=== PATIENT | male | born 1950 | race Caucasian/White ===

== ENCOUNTER 2021-05-30 11:27 | Inpatient (IN) | payer OTHER ==
[2021-05-30 12:00] LABS: #Eosinphils 0.1 thou/uL (0.0-0.7); #Lymphocytes 2.2 thou/uL (1.20-3.40); #Monocytes 0.9 thou/uL (0.11-0.59); #Neutrophils 11.9 thou/uL (1.40-6.50); %Basophils 0.2 % (0.0-1.0); %Eosinophils 0.4 % (0.0-10.0); %Lymphocytes 14.5 % (21.0-51.0); Hemoglobin 15.9 g/dL (14.0-18.0); Mean Corpuscular HGB CONC 34.6 g/dL (32.0-36.0); Mean Corpuscular Hemoglobin 30.3 pg (27.0-31.0); Mean Corpuscular Volume 87.3 fL (78.0-98.0); Mean Platelet Volume 7.3 fL (7.4-10.4); Platelet Count 303 thou/uL (130-400); RBC Distribution Width 13.6 % (11.5-14.5); Red Blood Cell (RBC) Count 5.25 mill/uL (4.70-6.10)
[2021-05-30 12:11] LABS: PTT 29.4 sec (22.9-36.1); Prothrombin Time 13.7 sec (12.0-14.7)
[2021-05-30 12:18] LABS: ALT (SGPT) 73 U/L (8-55); AST (SGOT) 63 U/L (5-34); Albumin 4.2 g/dL (3.4-4.8); Alkaline Phosphatase 72 U/L (40-110); Anion Gap 18 mmol/L (10-20); BUN (Urea Nitrogen) 30 mg/dL (8.4-25.7); Bilirubin, Total 0.6 mg/dL (0.2-1.2); CK (CPK) 2968 U/L (30-200); Calc. Creatinine Clearance 0 mL/min (70-130); Carbon Dioxide 21 mmol/L (23-31); Chloride 100 mmol/L (98-107); Globulin 3.5 g/dL (2.4-3.5); Glucose 311 mg/dL (80-115); Potassium 4.4 mmol/L (3.5-5.1); Protein, Total 7.7 g/dL (5.8-8.1); Sodium 135 mmol/L (136-145)
[2021-05-30] MEDS ORDERED: Morphine 4 MG/ML VIAL ONE (12:28)
[2021-05-30] MEDS ORDERED: Aspirin 300 MG Suppository ONE (13:45)
[2021-05-30 14:32] LABS: Actual Bicarbonate (HCO3a) 20.7 mEq/L (22-28); Base Excess (BEa) -2.4 mEq/L (-2.0 to +3.0); CO2 Tension 31.4 mmHg (35.0-45.0); Calcium, Ionized (arterial) 1.15 mmol/L (1.12-1.30); Carboxyhemoglobin (COHb) 0.8 gm% (0.0-3.0); O2 Tension (PaO2), arterial 68.9 mmHg (> 70.0); Potassium - ABG Lab 4.18 mmol/L (3.70-5.30); pH, Arterial 7.44 (7.35-7.45)
[2021-05-30 14:33] LABS: Bacteria/HPF None Seen HPF (None Seen); Bilirubin Negative (Negative); Blood, Urine 2+ (Negative); Clarity Clear (Clear); Glucose, Urine (Dipstick) Greater than 1000 mg/dL (Negative); Ketone, Urine Negative (Negative); Leukocyte Negative Leu/uL (Negative); Nitrite Negative (Negative); Protein, Urine (Dipstick) 10 mg/dL (Neg-Trace); RBC/HPF 0-3 HPF (0-3); Squamous Epithelial None Seen HPF (0-3); Urobilinogen Normal mg/dL (Less than 2); WBC/HPF 0-3 HPF (0-3); pH, Urine 5.5 (5.0-9.0)
[2021-05-30 14:34] LABS: Puncture Site RRA
[2021-05-30 14:38] LABS: Specific Gravity, Urine 1.054 (1.002-1.036)
[2021-05-30] MEDS ORDERED: Sodium Chloride 0.9% 1,000 ML IV SCH (16:45)
[2021-05-30] MEDS ORDERED: Ondansetron ODT 4 MG TAB PO PRN (17:19)
[2021-05-30] MEDS ORDERED: Ondansetron PF 4 MG/2 ML Vial IVP PRN (17:19)
[2021-05-30] MEDS ORDERED: Dextrose 50% Abboject 50 ML SYRINGE SLOW IVP PRN (17:19)
[2021-05-30] MEDS ORDERED: Dextrose 5% in Water 1,000 ML IV PRN (17:19)
[2021-05-30] MEDS: Sodium Chloride 0.9% 1,000 ML IV SCH (17:52)
[2021-05-30] MEDS: HumaLOG 300 UNITS/3 ML VIAL SC PRN (18:29)
[2021-05-30] MEDS: Atorvastatin Calcium 40 MG TAB PO SCH (21:58)
[2021-05-30] MEDS: Famotidine/PF 20 mg/2ml Vial SLOW IVP SCH (22:01)
[2021-05-31] MEDS: HumaLOG 300 UNITS/3 ML VIAL SC PRN ×4 (01:05→18:39)
[2021-05-31 05:33] LABS: #Basophils 0.1 thou/uL (0.0-0.2); #Eosinphils 0.1 thou/uL (0.0-0.7); #Lymphocytes 2.2 thou/uL (1.20-3.40); #Monocytes 0.8 thou/uL (0.11-0.59); #Neutrophils 8.6 thou/uL (1.40-6.50); %Eosinophils 0.6 % (0.0-10.0); %Lymphocytes 18.3 % (21.0-51.0); %Neutrophils 73.1 % (42.0-75.0); Hemoglobin 15.3 g/dL (14.0-18.0); Mean Corpuscular HGB CONC 33.5 g/dL (32.0-36.0); Mean Corpuscular Volume 89.4 fL (78.0-98.0); Mean Platelet Volume 7.9 fL (7.4-10.4); Platelet Count 265 thou/uL (130-400); RBC Distribution Width 13.9 % (11.5-14.5); White Blood Cell (WBC) Count 11.8 thou/uL (4.8-10.8)
[2021-05-31 06:00] LABS: ALT (SGPT) 70 U/L (8-55); AST (SGOT) 64 U/L (5-34); Alkaline Phosphatase 64 U/L (40-110); Anion Gap 19 mmol/L (10-20); BUN (Urea Nitrogen) 30 mg/dL (8.4-25.7); Bilirubin, Total 0.5 mg/dL (0.2-1.2); CK (CPK) 2115 U/L (30-200); Calc. Creatinine Clearance 84 mL/min (70-130); Calcium 9.6 mg/dL (7.8-10.44); Carbon Dioxide 18 mmol/L (23-31); Cardiac Risk 5.4 (Less than 4.5); Chloride 104 mmol/L (98-107); Cholesterol 205 mg/dl (< 200 Desired); Globulin 3.4 g/dL (2.4-3.5); Glucose 329 mg/dL (83-110); HDL Cholesterol 38 mg/dL (>60 Neg Risk); LDL Cholesterol, Calculated 135 mg/dL; Potassium 4.4 mmol/L (3.5-5.1); Protein, Total 7.4 g/dL (5.8-8.1); Sodium 137 mmol/L (136-145); Triglycerides 162 mg/dL (Less than 150)
[2021-05-31] MEDS: Sodium Chloride 0.9% 1,000 ML IV SCH ×2 (06:09→20:37)
[2021-05-31] MEDS: Aspirin 300 MG Suppository PR SCH (09:32)
[2021-05-31] MEDS: Famotidine/PF 20 mg/2ml Vial SLOW IVP SCH ×2 (09:32→20:37)
[2021-05-31] MEDS ORDERED: Lantus 1000 UNITS/10 ML VIAL SC SCH (15:45)
[2021-05-31] MEDS: Acetaminophen 650 MG Suppository PR PRN (20:37)
[2021-05-31] MEDS: Atorvastatin Calcium 40 MG TAB PO SCH (21:16)
[2021-06-01] MEDS: HumaLOG 300 UNITS/3 ML VIAL SC PRN ×4 (00:36→19:33)
[2021-06-01] MEDS ORDERED: Lantus 1000 UNITS/10 ML VIAL SC SCH (09:00)
[2021-06-01] MEDS: Sodium Chloride 0.9% 1,000 ML IV SCH ×2 (10:03→23:58)
[2021-06-01] MEDS: Nicotine 21 MG PATCH TD SCH ×2 (10:05→10:13)
[2021-06-01] MEDS: Aspirin 300 MG Suppository PR SCH (10:05)
[2021-06-01] MEDS: Famotidine/PF 20 mg/2ml Vial SLOW IVP SCH (10:05)
[2021-06-01] MEDS: Lantus 1000 UNITS/10 ML VIAL SC SCH (10:08)
[2021-06-01 11:47] LABS: #Eosinphils 0.1 thou/uL (0.0-0.7); #Monocytes 0.7 thou/uL (0.11-0.59); #Neutrophils 6.1 thou/uL (1.40-6.50); %Basophils 0.5 % (0.0-1.0); %Eosinophils 1.1 % (0.0-10.0); %Lymphocytes 22.3 % (21.0-51.0); %Monocytes 7.5 % (0.0-10.0); %Neutrophils 68.5 % (42.0-75.0); Hemoglobin 14.1 g/dL (14.0-18.0); Mean Corpuscular HGB CONC 33.1 g/dL (32.0-36.0); Mean Corpuscular Hemoglobin 29.6 pg (27.0-31.0); Mean Corpuscular Volume 89.4 fL (78.0-98.0); Mean Platelet Volume 7.5 fL (7.4-10.4); Platelet Count 248 thou/uL (130-400); RBC Distribution Width 13.7 % (11.5-14.5); Red Blood Cell (RBC) Count 4.78 mill/uL (4.70-6.10); White Blood Cell (WBC) Count 8.9 thou/uL (4.8-10.8)
[2021-06-01 12:14] LABS: ALT (SGPT) 67 U/L (8-55); AST (SGOT) 71 U/L (5-34); Albumin 3.9 g/dL (3.4-4.8); Alkaline Phosphatase 59 U/L (40-110); Anion Gap 15 mmol/L (10-20); BUN (Urea Nitrogen) 24 mg/dL (8.4-25.7); Bilirubin, Total 0.5 mg/dL (0.2-1.2); CK (CPK) 1946 U/L (30-200); Calc. Creatinine Clearance 95 mL/min (70-130); Calcium 9.5 mg/dL (7.8-10.44); Carbon Dioxide 22 mmol/L (23-31); Chloride 109 mmol/L (98-107); Globulin 3.7 g/dL (2.4-3.5); Glucose 302 mg/dL (83-110); Potassium 4.4 mmol/L (3.5-5.1); Protein, Total 7.6 g/dL (5.8-8.1); Sodium 142 mmol/L (136-145)
[2021-06-01] MEDS: Atorvastatin Calcium 40 MG TAB PO SCH (21:25)
[2021-06-02] MEDS: Famotidine/PF 20 mg/2ml Vial SLOW IVP SCH ×5 (00:08→22:03)
[2021-06-02] MEDS: HumaLOG 300 UNITS/3 ML VIAL SC PRN ×4 (00:17→17:29)
[2021-06-02 06:05] LABS: #Eosinphils 0.1 thou/uL (0.0-0.7); #Lymphocytes 1.8 thou/uL (1.20-3.40); #Monocytes 0.5 thou/uL (0.11-0.59); %Basophils 0.4 % (0.0-1.0); %Eosinophils 1.3 % (0.0-10.0); %Lymphocytes 21.3 % (21.0-51.0); %Monocytes 6.4 % (0.0-10.0); %Neutrophils 70.6 % (42.0-75.0); Hemoglobin 13.9 g/dL (14.0-18.0); Mean Corpuscular HGB CONC 33.2 g/dL (32.0-36.0); Mean Corpuscular Hemoglobin 30.2 pg (27.0-31.0); Mean Corpuscular Volume 90.9 fL (78.0-98.0); Mean Platelet Volume 7.3 fL (7.4-10.4); Platelet Count 232 thou/uL (130-400); RBC Distribution Width 13.9 % (11.5-14.5); White Blood Cell (WBC) Count 8.5 thou/uL (4.8-10.8)
[2021-06-02 06:25] LABS: ALT (SGPT) 67 U/L (8-55); AST (SGOT) 58 U/L (5-34); Albumin 3.7 g/dL (3.4-4.8); Alkaline Phosphatase 57 U/L (40-110); Anion Gap 14 mmol/L (10-20); BUN (Urea Nitrogen) 22 mg/dL (8.4-25.7); Bilirubin, Total 0.5 mg/dL (0.2-1.2); CK (CPK) 1529 U/L (30-200); Calc. Creatinine Clearance 108 mL/min (70-130); Calcium 9.3 mg/dL (7.8-10.44); Carbon Dioxide 20 mmol/L (23-31); Chloride 113 mmol/L (98-107); Globulin 3.3 g/dL (2.4-3.5); Glucose 292 mg/dL (83-110); Sodium 143 mmol/L (136-145)
[2021-06-02] MEDS: Lantus 1000 UNITS/10 ML VIAL SC SCH (09:20)
[2021-06-02] MEDS: Aspirin 300 MG Suppository PR SCH (09:20)
[2021-06-02] MEDS: Nicotine 21 MG PATCH TD SCH (09:20)
[2021-06-02] MEDS: Sodium Chloride 0.9% 1,000 ML IV SCH (13:15)
[2021-06-02] MEDS ORDERED: Lantus 1000 UNITS/10 ML VIAL SC SCH (18:30)
[2021-06-02] MEDS: Atorvastatin Calcium 40 MG TAB PO SCH (22:21)
[2021-06-03] MEDS: HumaLOG 300 UNITS/3 ML VIAL SC PRN ×5 (00:30→23:35)
[2021-06-03] MEDS: Sodium Chloride 0.9% 1,000 ML IV SCH (05:40)
[2021-06-03 06:05] LABS: #Eosinphils 0.2 thou/uL (0.0-0.7); #Lymphocytes 1.9 thou/uL (1.20-3.40); #Monocytes 0.7 thou/uL (0.11-0.59); #Neutrophils 6.7 thou/uL (1.40-6.50); %Basophils 0.4 % (0.0-1.0); %Eosinophils 2.5 % (0.0-10.0); %Lymphocytes 20.3 % (21.0-51.0); %Monocytes 6.9 % (0.0-10.0); Hemoglobin 14.4 g/dL (14.0-18.0); Mean Corpuscular HGB CONC 32.6 g/dL (32.0-36.0); Mean Corpuscular Hemoglobin 29.4 pg (27.0-31.0); Mean Corpuscular Volume 90.2 fL (78.0-98.0); Mean Platelet Volume 7.2 fL (7.4-10.4); Platelet Count 239 thou/uL (130-400); RBC Distribution Width 13.8 % (11.5-14.5); White Blood Cell (WBC) Count 9.5 thou/uL (4.8-10.8)
[2021-06-03 06:08] LABS: ALT (SGPT) 72 U/L (8-55); AST (SGOT) 62 U/L (5-34); Albumin 3.8 g/dL (3.4-4.8); Alkaline Phosphatase 59 U/L (40-110); Anion Gap 14 mmol/L (10-20); BUN (Urea Nitrogen) 20 mg/dL (8.4-25.7); Bilirubin, Total 0.6 mg/dL (0.2-1.2); Calc. Creatinine Clearance 100 mL/min (70-130); Calcium 9.5 mg/dL (7.8-10.44); Carbon Dioxide 22 mmol/L (23-31); Chloride 113 mmol/L (98-107); Globulin 3.4 g/dL (2.4-3.5); Glucose 271 mg/dL (83-110); Potassium 3.9 mmol/L (3.5-5.1); Protein, Total 7.2 g/dL (5.8-8.1); Sodium 145 mmol/L (136-145)
[2021-06-03] MEDS: Famotidine/PF 20 mg/2ml Vial SLOW IVP SCH ×2 (08:32→21:45)
[2021-06-03] MEDS: Aspirin 300 MG Suppository PR SCH (08:32)
[2021-06-03] MEDS: Lantus 1000 UNITS/10 ML VIAL SC SCH (08:33)
[2021-06-03] MEDS: Nicotine 21 MG PATCH TD SCH (08:33)
[2021-06-03] MEDS: D5W-AA 4.25% with LYTES 1,000 ML IV SCH ×2 (11:23→23:35)
[2021-06-03] MEDS: Atorvastatin Calcium 40 MG TAB PO SCH (21:21)
[2021-06-04] MEDS ORDERED: Lorazepam 2 MG/ML VIAL SLOW IVP SCH (04:00)
[2021-06-04] MEDS: HumaLOG 300 UNITS/3 ML VIAL SC PRN ×2 (06:22→18:37)
[2021-06-04] MEDS: Nicotine 21 MG PATCH TD SCH (08:29)
[2021-06-04] MEDS: Lantus 1000 UNITS/10 ML VIAL SC SCH (08:29)
[2021-06-04] MEDS: Famotidine/PF 20 mg/2ml Vial SLOW IVP SCH ×2 (08:29→21:17)
[2021-06-04] MEDS ORDERED: Aspirin Chewable 81 MG TAB PO SCH (09:00)
[2021-06-04] MEDS ORDERED: hydrALAZINE 20 MG/ML VIAL SLOW IVP PRN (10:42)
[2021-06-04 11:07] LABS: Actual Bicarbonate (HCO3a) 19.3 mEq/L (22-28); Base Excess (BEa) -4.5 mEq/L (-2.0 to +3.0); CO2 Tension 32.2 mmHg (35.0-45.0); Calcium, Ionized (arterial) 1.22 mmol/L (1.12-1.30); Carboxyhemoglobin (COHb) 0.5 gm% (0.0-3.0); Hemoglobin (Hb) 15.3 g/dL (14.0-18.0); O2 Tension (PaO2), arterial 84.9 mmHg (> 70.0)
[2021-06-04 11:09] LABS: Puncture Site RRA
[2021-06-04] MEDS: Acetaminophen 650 MG Suppository PR PRN ×2 (12:03→21:17)
[2021-06-04 12:12] LABS: Lactic Acid 1.1 mmol/L (0.5-2.2)
[2021-06-04] MEDS ORDERED: Meropenem 1 GM in Sodium Chloride 0.9% 100 ML IVPB SCH ×2 (12:30→14:00)
[2021-06-04 13:11] LABS: SARS-CoV-2 NAA Rapid Test Not Detected (NotDetected)
[2021-06-04] MEDS ORDERED: Amino Acids 4.25 %/Dextrose 5% 2,000 ML BAG IV SCH (13:15)
[2021-06-04 14:03] LABS: #Eosinphils 0.3 thou/uL (0.0-0.7); #Lymphocytes 2.3 thou/uL (1.20-3.40); #Monocytes 0.7 thou/uL (0.11-0.59); #Neutrophils 8.5 thou/uL (1.40-6.50); %Basophils 0.1 % (0.0-1.0); %Eosinophils 2.8 % (0.0-10.0); %Lymphocytes 19.3 % (21.0-51.0); %Neutrophils 71.9 % (42.0-75.0); Hemoglobin 15.3 g/dL (14.0-18.0); Mean Corpuscular Hemoglobin 30.9 pg (27.0-31.0); Mean Corpuscular Volume 91.1 fL (78.0-98.0); Mean Platelet Volume 7.4 fL (7.4-10.4); Platelet Count 258 thou/uL (130-400); RBC Distribution Width 13.9 % (11.5-14.5); Red Blood Cell (RBC) Count 4.96 mill/uL (4.70-6.10); White Blood Cell (WBC) Count 11.9 thou/uL (4.8-10.8)
[2021-06-04 14:16] LABS: Anion Gap 16 mmol/L (10-20); BUN (Urea Nitrogen) 24 mg/dL (8.4-25.7); Calc. Creatinine Clearance 100 mL/min (70-130); Calcium 9.3 mg/dL (7.8-10.44); Carbon Dioxide 20 mmol/L (23-31); Chloride 112 mmol/L (98-107); Glucose 309 mg/dL (83-110); Potassium 4.5 mmol/L (3.5-5.1); Sodium 143 mmol/L (136-145)
[2021-06-04] MEDS: DEXTROSE 5% IV SCH (15:41)
[2021-06-04] MEDS: AMINO ACIDS IV SCH (15:41)
[2021-06-04] MEDS: ADMIXTURE FEE IV SCH (15:41)
[2021-06-04] MEDS: Meropenem 1 GM in Sodium Chloride 0.9% 100 ML IVPB SCH (21:17)
[2021-06-04] MEDS: Atorvastatin Calcium 40 MG TAB PO SCH (21:45)
[2021-06-05] MEDS: HumaLOG 300 UNITS/3 ML VIAL SC PRN ×4 (00:24→18:04)
[2021-06-05] MEDS: Meropenem 1 GM in Sodium Chloride 0.9% 100 ML IVPB SCH ×3 (05:14→21:35)
[2021-06-05] MEDS: AMINO ACIDS IV SCH ×2 (05:15→19:39)
[2021-06-05] MEDS: DEXTROSE 5% IV SCH ×2 (05:15→19:39)
[2021-06-05] MEDS: ADMIXTURE FEE IV SCH ×2 (05:15→19:39)
[2021-06-05] MEDS ORDERED: Lantus 1000 UNITS/10 ML VIAL SC SCH (09:00)
[2021-06-05] MEDS: Aspirin 300 MG Suppository PR SCH (09:46)
[2021-06-05] MEDS: Famotidine/PF 20 mg/2ml Vial SLOW IVP SCH ×2 (09:52→19:40)
[2021-06-05] MEDS: Nicotine 21 MG PATCH TD SCH (09:52)
[2021-06-05] MEDS ORDERED: Enoxaparin Sodium 120 MG/0.8 ML SYRINGE SC SCH (12:41)
[2021-06-05 13:19] LABS: #Eosinphils 0.3 thou/uL (0.0-0.7); #Lymphocytes 2.3 thou/uL (1.20-3.40); #Monocytes 0.7 thou/uL (0.11-0.59); #Neutrophils 6.7 thou/uL (1.40-6.50); %Basophils 0.5 % (0.0-1.0); %Eosinophils 3.3 % (0.0-10.0); %Lymphocytes 22.8 % (21.0-51.0); %Monocytes 7.1 % (0.0-10.0); %Neutrophils 66.4 % (42.0-75.0); Hemoglobin 15.2 g/dL (14.0-18.0); Mean Corpuscular HGB CONC 32.9 g/dL (32.0-36.0); Mean Corpuscular Hemoglobin 29.7 pg (27.0-31.0); Mean Corpuscular Volume 90.4 fL (78.0-98.0); Mean Platelet Volume 7.7 fL (7.4-10.4); Platelet Count 249 thou/uL (130-400); RBC Distribution Width 13.9 % (11.5-14.5); Red Blood Cell (RBC) Count 5.12 mill/uL (4.70-6.10); White Blood Cell (WBC) Count 10.1 thou/uL (4.8-10.8)
[2021-06-05] MEDS: Enoxaparin Sodium 80 MG/0.8 ML SYRINGE SC SCH (19:40)
[2021-06-05] MEDS: Atorvastatin Calcium 40 MG TAB PO SCH (19:40)
[2021-06-06] MEDS: HumaLOG 300 UNITS/3 ML VIAL SC PRN ×3 (01:20→17:40)
[2021-06-06] MEDS: Acetaminophen 650 MG Suppository PR PRN (03:35)
[2021-06-06] MEDS ORDERED: methylPREDNISolone Sod Succ 40 MG VIAL ONE (03:54)
[2021-06-06] MEDS ORDERED: Ketorolac Tromethamine 30 MG/ML VIAL IVP SCH (04:45)
[2021-06-06] MEDS: Meropenem 1 GM in Sodium Chloride 0.9% 100 ML IVPB SCH ×3 (05:00→20:12)
[2021-06-06 07:22] LABS: #Eosinphils 0.2 thou/uL (0.0-0.7); #Lymphocytes 1.1 thou/uL (1.20-3.40); #Monocytes 0.3 thou/uL (0.11-0.59); #Neutrophils 8.4 thou/uL (1.40-6.50); %Basophils 0.1 % (0.0-1.0); %Eosinophils 1.7 % (0.0-10.0); %Lymphocytes 11.1 % (21.0-51.0); %Monocytes 3.1 % (0.0-10.0); Hemoglobin 15.3 g/dL (14.0-18.0); Mean Corpuscular HGB CONC 32.1 g/dL (32.0-36.0); Mean Corpuscular Volume 90.4 fL (78.0-98.0); Mean Platelet Volume 7.6 fL (7.4-10.4); Platelet Count 236 thou/uL (130-400); RBC Distribution Width 13.8 % (11.5-14.5); Red Blood Cell (RBC) Count 5.26 mill/uL (4.70-6.10); White Blood Cell (WBC) Count 9.9 thou/uL (4.8-10.8)
[2021-06-06 07:35] LABS: Anion Gap 15 mmol/L (10-20); BUN (Urea Nitrogen) 36 mg/dL (8.4-25.7); Calc. Creatinine Clearance 95 mL/min (70-130); Calcium 9.6 mg/dL (7.8-10.44); Carbon Dioxide 18 mmol/L (23-31); Chloride 112 mmol/L (98-107); Glucose 414 mg/dL (83-110); Potassium 4.7 mmol/L (3.5-5.1); Sodium 140 mmol/L (136-145)
[2021-06-06] MEDS ORDERED: Vancomycin 1.5 GRAM/300 ML BAG 1.5 GM in Premix Bag 1 BAG IVPB SCH (08:00)
[2021-06-06] MEDS ORDERED: [UNRECOGNIZED DRUG - OTHER] IVPB PRN (08:05)
[2021-06-06] MEDS: Enoxaparin Sodium 80 MG/0.8 ML SYRINGE SC SCH ×2 (09:52→20:12)
[2021-06-06] MEDS: Aspirin 300 MG Suppository PR SCH (09:52)
[2021-06-06] MEDS: Famotidine/PF 20 mg/2ml Vial SLOW IVP SCH ×2 (09:53→20:12)
[2021-06-06] MEDS: Nicotine 21 MG PATCH TD SCH (09:53)
[2021-06-06] MEDS: Lantus 1000 UNITS/10 ML VIAL SC SCH (09:53)
[2021-06-06] MEDS: AMINO ACIDS IV SCH (09:54)
[2021-06-06] MEDS: ADMIXTURE FEE IV SCH (09:54)
[2021-06-06] MEDS: DEXTROSE 5% IV SCH (09:54)
[2021-06-06] MEDS ORDERED: Vancomycin HCl 1.5 GM in Sodium Chloride 0.9% 250 ML 300 ML IVPB SCH (20:00)
[2021-06-07] MEDS ORDERED: methylPREDNISolone Sod Succ 40 MG VIAL IVP SCH (04:00)
[2021-06-07 04:18] LABS: #Eosinphils 0.2 thou/uL (0.0-0.7); #Lymphocytes 1.7 thou/uL (1.20-3.40); #Monocytes 0.7 thou/uL (0.11-0.59); #Neutrophils 6.5 thou/uL (1.40-6.50); %Basophils 0.2 % (0.0-1.0); %Eosinophils 1.9 % (0.0-10.0); %Monocytes 7.5 % (0.0-10.0); %Neutrophils 71.5 % (42.0-75.0); Hemoglobin 15.4 g/dL (14.0-18.0); Mean Corpuscular HGB CONC 31.5 g/dL (32.0-36.0); Mean Corpuscular Hemoglobin 28.9 pg (27.0-31.0); Mean Corpuscular Volume 91.7 fL (78.0-98.0); Mean Platelet Volume 7.9 fL (7.4-10.4); Platelet Count 262 thou/uL (130-400); RBC Distribution Width 13.8 % (11.5-14.5); Red Blood Cell (RBC) Count 5.34 mill/uL (4.70-6.10); White Blood Cell (WBC) Count 9.1 thou/uL (4.8-10.8)
[2021-06-07 04:28] LABS: Anion Gap 14 mmol/L (10-20); BUN (Urea Nitrogen) 38 mg/dL (8.4-25.7); Calc. Creatinine Clearance 100 mL/min (70-130); Calcium 9.7 mg/dL (7.8-10.44); Carbon Dioxide 21 mmol/L (23-31); Chloride 111 mmol/L (98-107); Glucose 339 mg/dL (83-110); Potassium 4.1 mmol/L (3.5-5.1); Sodium 142 mmol/L (136-145)
[2021-06-07] MEDS: Meropenem 1 GM in Sodium Chloride 0.9% 100 ML IVPB SCH ×3 (05:34→21:45)
[2021-06-07] MEDS: HumaLOG 300 UNITS/3 ML VIAL SC PRN ×2 (05:35→16:35)
[2021-06-07 07:14] LABS: Vancomycin, Trough 13.5 ug/mL
[2021-06-07] MEDS: Famotidine/PF 20 mg/2ml Vial SLOW IVP SCH ×2 (07:58→21:46)
[2021-06-07] MEDS: Nicotine 21 MG PATCH TD SCH (07:58)
[2021-06-07] MEDS: Aspirin 300 MG Suppository PR SCH (07:59)
[2021-06-07] MEDS: Enoxaparin Sodium 80 MG/0.8 ML SYRINGE SC SCH ×2 (07:59→21:46)
[2021-06-07] MEDS ORDERED: VANCOMYCIN 1.75 GM/350 ML BAG 1.75 GM in Premix Bag 1 BAG IVPB SCH (08:00)
[2021-06-07] MEDS: Lantus 1000 UNITS/10 ML VIAL SC SCH (16:36)
[2021-06-07] MEDS ORDERED: Lantus 1000 UNITS/10 ML VIAL SC SCH (21:00)
[2021-06-07] MEDS: levETIRAcetam in NS 500 MG in Premix Bag 1 BAG IVPB SCH (21:00)
[2021-06-08] MEDS: HumaLOG 300 UNITS/3 ML VIAL SC PRN ×4 (00:30→17:55)
[2021-06-08 04:13] LABS: #Eosinphils 0.4 thou/uL (0.0-0.7); #Lymphocytes 1.9 thou/uL (1.20-3.40); #Monocytes 0.7 thou/uL (0.11-0.59); #Neutrophils 4.9 thou/uL (1.40-6.50); %Basophils 0.1 % (0.0-1.0); %Eosinophils 5.4 % (0.0-10.0); %Lymphocytes 23.8 % (21.0-51.0); %Monocytes 8.5 % (0.0-10.0); %Neutrophils 62.1 % (42.0-75.0); Hemoglobin 15.4 g/dL (14.0-18.0); Mean Corpuscular HGB CONC 33.6 g/dL (32.0-36.0); Mean Corpuscular Hemoglobin 30.1 pg (27.0-31.0); Mean Corpuscular Volume 89.7 fL (78.0-98.0); Mean Platelet Volume 8.1 fL (7.4-10.4); Platelet Count 244 thou/uL (130-400); RBC Distribution Width 13.7 % (11.5-14.5); White Blood Cell (WBC) Count 7.9 thou/uL (4.8-10.8)
[2021-06-08 04:31] LABS: Anion Gap 12 mmol/L (10-20); BUN (Urea Nitrogen) 39 mg/dL (8.4-25.7); Calc. Creatinine Clearance 95 mL/min (70-130); Calcium 9.5 mg/dL (7.8-10.44); Carbon Dioxide 19 mmol/L (23-31); Chloride 116 mmol/L (98-107); Glucose 390 mg/dL (83-110); Sodium 143 mmol/L (136-145)
[2021-06-08] MEDS: Meropenem 1 GM in Sodium Chloride 0.9% 100 ML IVPB SCH ×3 (05:13→20:13)
[2021-06-08] MEDS: DEXTROSE 5% IV SCH ×2 (06:15→20:10)
[2021-06-08] MEDS: ADMIXTURE FEE IV SCH ×2 (06:15→20:10)
[2021-06-08] MEDS: AMINO ACIDS IV SCH ×2 (06:15→20:10)
[2021-06-08] MEDS: Famotidine/PF 20 mg/2ml Vial SLOW IVP SCH ×2 (09:18→20:12)
[2021-06-08] MEDS: Aspirin 300 MG Suppository PR SCH (09:18)
[2021-06-08] MEDS: Nicotine 21 MG PATCH TD SCH (09:18)
[2021-06-08] MEDS: Enoxaparin Sodium 80 MG/0.8 ML SYRINGE SC SCH ×2 (09:18→20:11)
[2021-06-08] MEDS: levETIRAcetam in NS 500 MG in Premix Bag 1 BAG IVPB SCH ×2 (09:18→20:13)
[2021-06-08] MEDS: Lantus 1000 UNITS/10 ML VIAL SC SCH ×2 (10:23→20:10)
[2021-06-09 03:31] LABS: #Basophils 0.1 thou/uL (0.0-0.2); #Eosinphils 0.3 thou/uL (0.0-0.7); #Lymphocytes 2.1 thou/uL (1.20-3.40); #Monocytes 0.8 thou/uL (0.11-0.59); #Neutrophils 9.1 thou/uL (1.40-6.50); %Basophils 0.6 % (0.0-1.0); %Eosinophils 2.2 % (0.0-10.0); %Lymphocytes 17.2 % (21.0-51.0); %Monocytes 6.6 % (0.0-10.0); %Neutrophils 73.4 % (42.0-75.0); Hemoglobin 15.7 g/dL (14.0-18.0); Mean Corpuscular HGB CONC 32.8 g/dL (32.0-36.0); Mean Corpuscular Hemoglobin 29.8 pg (27.0-31.0); Mean Corpuscular Volume 90.8 fL (78.0-98.0); Mean Platelet Volume 8.1 fL (7.4-10.4); Platelet Count 259 thou/uL (130-400); RBC Distribution Width 13.9 % (11.5-14.5); Red Blood Cell (RBC) Count 5.26 mill/uL (4.70-6.10); White Blood Cell (WBC) Count 12.3 thou/uL (4.8-10.8)
[2021-06-09 03:50] LABS: Anion Gap 15 mmol/L (10-20); BUN (Urea Nitrogen) 36 mg/dL (8.4-25.7); Calc. Creatinine Clearance 100 mL/min (70-130); Calcium 9.6 mg/dL (7.8-10.44); Carbon Dioxide 19 mmol/L (23-31); Chloride 115 mmol/L (98-107); Glucose 307 mg/dL (83-110); Sodium 145 mmol/L (136-145)
[2021-06-09] MEDS: Meropenem 1 GM in Sodium Chloride 0.9% 100 ML IVPB SCH ×3 (06:20→21:29)
[2021-06-09] MEDS: HumaLOG 300 UNITS/3 ML VIAL SC PRN ×3 (06:37→17:53)
[2021-06-09] MEDS: Aspirin 300 MG Suppository PR SCH (09:35)
[2021-06-09] MEDS: Lantus 1000 UNITS/10 ML VIAL SC SCH ×2 (11:45→20:48)
[2021-06-09] MEDS: Enoxaparin Sodium 80 MG/0.8 ML SYRINGE SC SCH ×2 (11:45→20:41)
[2021-06-09] MEDS: levETIRAcetam in NS 500 MG in Premix Bag 1 BAG IVPB SCH ×2 (11:46→20:48)
[2021-06-09] MEDS: Famotidine/PF 20 mg/2ml Vial SLOW IVP SCH ×2 (11:46→20:44)
[2021-06-09] MEDS: Nicotine 21 MG PATCH TD SCH (11:46)
[2021-06-10] MEDS: HumaLOG 300 UNITS/3 ML VIAL SC PRN ×4 (00:39→18:36)
[2021-06-10] MEDS: Meropenem 1 GM in Sodium Chloride 0.9% 100 ML IVPB SCH ×3 (04:06→21:36)
[2021-06-10] MEDS: AMINO ACIDS IV SCH (04:13)
[2021-06-10] MEDS: ADMIXTURE FEE IV SCH (04:13)
[2021-06-10] MEDS: DEXTROSE 5% IV SCH (04:13)
[2021-06-10] MEDS: Lantus 1000 UNITS/10 ML VIAL SC SCH ×2 (08:15→21:38)
[2021-06-10] MEDS: Enoxaparin Sodium 80 MG/0.8 ML SYRINGE SC SCH ×2 (08:18→21:36)
[2021-06-10] MEDS: Nicotine 21 MG PATCH TD SCH (08:19)
[2021-06-10] MEDS: Famotidine/PF 20 mg/2ml Vial SLOW IVP SCH ×2 (08:19→21:36)
[2021-06-10] MEDS: Aspirin 300 MG Suppository PR SCH (08:19)
[2021-06-10] MEDS: levETIRAcetam in NS 500 MG in Premix Bag 1 BAG IVPB SCH ×2 (08:20→21:35)
[2021-06-10] MEDS: hydrALAZINE 20 MG/ML VIAL SLOW IVP PRN ×2 (08:20→15:02)
[2021-06-10] MEDS: Amino Acids 4.25 %/Dextrose 5% 1,000 ML IV SCH (17:11)
[2021-06-11] MEDS: HumaLOG 300 UNITS/3 ML VIAL SC PRN ×3 (00:45→18:25)
[2021-06-11] MEDS: Amino Acids 4.25 %/Dextrose 5% 1,000 ML IV SCH ×3 (06:18→22:44)
[2021-06-11] MEDS: Meropenem 1 GM in Sodium Chloride 0.9% 100 ML IVPB SCH ×3 (06:19→21:43)
[2021-06-11] MEDS ORDERED: Lantus 1000 UNITS/10 ML VIAL SC SCH (07:35)
[2021-06-11 07:41] LABS: #Basophils 0.1 thou/uL (0.0-0.2); #Eosinphils 0.3 thou/uL (0.0-0.7); #Lymphocytes 2.4 thou/uL (1.20-3.40); #Monocytes 0.6 thou/uL (0.11-0.59); #Neutrophils 5.2 thou/uL (1.40-6.50); %Basophils 0.7 % (0.0-1.0); %Lymphocytes 28.2 % (21.0-51.0); %Monocytes 6.4 % (0.0-10.0); %Neutrophils 60.8 % (42.0-75.0); Hemoglobin 15.4 g/dL (14.0-18.0); Mean Corpuscular HGB CONC 32.6 g/dL (32.0-36.0); Mean Corpuscular Hemoglobin 29.6 pg (27.0-31.0); Mean Corpuscular Volume 90.8 fL (78.0-98.0); Mean Platelet Volume 8.9 fL (7.4-10.4); Platelet Count 242 thou/uL (130-400); RBC Distribution Width 13.9 % (11.5-14.5); Red Blood Cell (RBC) Count 5.22 mill/uL (4.70-6.10); White Blood Cell (WBC) Count 8.6 thou/uL (4.8-10.8)
[2021-06-11] MEDS: Famotidine/PF 20 mg/2ml Vial SLOW IVP SCH ×2 (09:14→21:50)
[2021-06-11] MEDS: Enoxaparin Sodium 80 MG/0.8 ML SYRINGE SC SCH ×2 (09:14→21:43)
[2021-06-11] MEDS: Lantus 1000 UNITS/10 ML VIAL SC SCH ×2 (09:15→21:44)
[2021-06-11] MEDS: levETIRAcetam in NS 500 MG in Premix Bag 1 BAG IVPB SCH ×2 (09:15→21:42)
[2021-06-11] MEDS: Nicotine 21 MG PATCH TD SCH (09:16)
[2021-06-11] MEDS ORDERED: Enoxaparin Sodium 80 MG/0.8 ML SYRINGE SC SCH (10:00)
[2021-06-11] MEDS: Aspirin 300 MG Suppository PR SCH (10:00)
[2021-06-11] MEDS: Acetaminophen 650 MG Suppository PR PRN (17:22)
[2021-06-12 00:29] LABS: SARS-CoV-2 PCR by NAA Not Detected (NotDetected)
[2021-06-12] MEDS: Meropenem 1 GM in Sodium Chloride 0.9% 100 ML IVPB SCH (05:27)
[2021-06-12] MEDS: HumaLOG 300 UNITS/3 ML VIAL SC PRN ×3 (06:23→19:28)
[2021-06-12] MEDS: Lantus 1000 UNITS/10 ML VIAL SC SCH ×2 (08:41→22:51)
[2021-06-12] MEDS: levETIRAcetam in NS 500 MG in Premix Bag 1 BAG IVPB SCH ×2 (08:41→22:51)
[2021-06-12] MEDS: Aspirin 300 MG Suppository PR SCH (08:42)
[2021-06-12] MEDS: Enoxaparin Sodium 80 MG/0.8 ML SYRINGE SC SCH ×2 (08:42→22:49)
[2021-06-12] MEDS: Nicotine 21 MG PATCH TD SCH (08:42)
[2021-06-12] MEDS: Famotidine/PF 20 mg/2ml Vial SLOW IVP SCH ×2 (08:42→22:49)
[2021-06-12] MEDS: Amino Acids 4.25 %/Dextrose 5% 1,000 ML IV SCH (11:41)
[2021-06-13] MEDS: Amino Acids 4.25 %/Dextrose 5% 1,000 ML IV SCH ×2 (00:51→15:06)
[2021-06-13] MEDS: Aspirin 300 MG Suppository PR SCH (08:12)
[2021-06-13] MEDS: Nicotine 21 MG PATCH TD SCH (08:44)
[2021-06-13] MEDS: levETIRAcetam in NS 500 MG in Premix Bag 1 BAG IVPB SCH ×2 (08:44→21:05)
[2021-06-13] MEDS: Famotidine/PF 20 mg/2ml Vial SLOW IVP SCH ×2 (08:44→21:05)
[2021-06-13] MEDS: Enoxaparin Sodium 80 MG/0.8 ML SYRINGE SC SCH ×2 (08:44→21:05)
[2021-06-13] MEDS: Lantus 1000 UNITS/10 ML VIAL SC SCH ×2 (08:45→21:07)
[2021-06-13 10:04] LABS: #Basophils 0.1 thou/uL (0.0-0.2); #Eosinphils 0.5 thou/uL (0.0-0.7); #Lymphocytes 2.3 thou/uL (1.20-3.40); #Monocytes 0.6 thou/uL (0.11-0.59); #Neutrophils 4.9 thou/uL (1.40-6.50); %Eosinophils 6.2 % (0.0-10.0); %Lymphocytes 27.7 % (21.0-51.0); %Monocytes 7.2 % (0.0-10.0); %Neutrophils 57.9 % (42.0-75.0); Hemoglobin 15.2 g/dL (14.0-18.0); Mean Corpuscular Volume 90.7 fL (78.0-98.0); Mean Platelet Volume 8.4 fL (7.4-10.4); Platelet Count 272 thou/uL (130-400); RBC Distribution Width 14.1 % (11.5-14.5); Red Blood Cell (RBC) Count 5.26 mill/uL (4.70-6.10); White Blood Cell (WBC) Count 8.4 thou/uL (4.8-10.8)
[2021-06-13 10:53] LABS: Anion Gap 16 mmol/L (10-20); BUN (Urea Nitrogen) 27 mg/dL (8.4-25.7); Calc. Creatinine Clearance 136 mL/min (70-130); Calcium 9.6 mg/dL (7.8-10.44); Carbon Dioxide 16 mmol/L (23-31); Chloride 116 mmol/L (98-107); Glucose 172 mg/dL (83-110); Potassium 3.5 mmol/L (3.5-5.1); Sodium 144 mmol/L (136-145)
[2021-06-13] MEDS ORDERED: Nystatin 500,000 UNITS/5 ML UDCUP SSW PRN (11:46)
[2021-06-13] MEDS: HumaLOG 300 UNITS/3 ML VIAL SC PRN (13:08)
[2021-06-13 14:24] VITALS: BMI 45.3
[2021-06-14] MEDS: Amino Acids 4.25 %/Dextrose 5% 1,000 ML IV SCH ×2 (00:40→14:13)
[2021-06-14] MEDS: Aspirin 300 MG Suppository PR SCH (08:43)
[2021-06-14] MEDS: Enoxaparin Sodium 80 MG/0.8 ML SYRINGE SC SCH ×2 (08:46→21:28)
[2021-06-14] MEDS: levETIRAcetam in NS 500 MG in Premix Bag 1 BAG IVPB SCH ×2 (08:47→21:28)
[2021-06-14] MEDS: Famotidine/PF 20 mg/2ml Vial SLOW IVP SCH ×2 (08:47→21:29)
[2021-06-14] MEDS: Nicotine 21 MG PATCH TD SCH (08:47)
[2021-06-14] MEDS: HumaLOG 300 UNITS/3 ML VIAL SC PRN ×2 (12:10→17:24)
[2021-06-14] MEDS: Lantus 1000 UNITS/10 ML VIAL SC SCH ×2 (12:51→21:29)
[2021-06-15] MEDS: Amino Acids 4.25 %/Dextrose 5% 1,000 ML IV SCH ×2 (02:10→17:30)
[2021-06-15] MEDS: HumaLOG 300 UNITS/3 ML VIAL SC PRN ×3 (06:01→18:46)
[2021-06-15] MEDS: Nicotine 21 MG PATCH TD SCH (09:59)
[2021-06-15] MEDS: Aspirin 300 MG Suppository PR SCH (10:00)
[2021-06-15] MEDS: Enoxaparin Sodium 80 MG/0.8 ML SYRINGE SC SCH ×2 (10:00→22:14)
[2021-06-15] MEDS: Famotidine/PF 20 mg/2ml Vial SLOW IVP SCH ×2 (10:04→22:15)
[2021-06-15] MEDS: levETIRAcetam in NS 500 MG in Premix Bag 1 BAG IVPB SCH ×2 (10:05→22:15)
[2021-06-15] MEDS: Lantus 1000 UNITS/10 ML VIAL SC SCH ×2 (10:05→22:18)
[2021-06-15] MEDS ORDERED: Ketorolac Tromethamine 30 MG/ML VIAL IVP PRN (18:13)
[2021-06-16] MEDS: HumaLOG 300 UNITS/3 ML VIAL SC PRN ×5 (00:56→22:19)
[2021-06-16] MEDS: Amino Acids 4.25 %/Dextrose 5% 1,000 ML IV SCH ×2 (05:17→18:19)
[2021-06-16] MEDS: levETIRAcetam in NS 500 MG in Premix Bag 1 BAG IVPB SCH ×2 (09:43→22:14)
[2021-06-16] MEDS: Enoxaparin Sodium 80 MG/0.8 ML SYRINGE SC SCH ×2 (09:43→22:14)
[2021-06-16] MEDS: Nicotine 21 MG PATCH TD SCH (09:43)
[2021-06-16] MEDS: Aspirin 300 MG Suppository PR SCH (09:45)
[2021-06-16] MEDS: Famotidine/PF 20 mg/2ml Vial SLOW IVP SCH ×2 (09:45→22:14)
[2021-06-16] MEDS: Lantus 1000 UNITS/10 ML VIAL SC SCH ×2 (09:46→22:15)
[2021-06-17] MEDS ORDERED: Sodium Chloride 0.9% 250 ML IV SCH (01:45)
[2021-06-17] MEDS: Amino Acids 4.25 %/Dextrose 5% 1,000 ML IV SCH ×2 (06:00→16:01)
[2021-06-17] MEDS: HumaLOG 300 UNITS/3 ML VIAL SC PRN ×3 (06:29→17:47)
[2021-06-17] MEDS: Lantus 1000 UNITS/10 ML VIAL SC SCH ×2 (08:12→21:51)
[2021-06-17] MEDS: Aspirin 300 MG Suppository PR SCH (08:19)
[2021-06-17] MEDS: Nicotine 21 MG PATCH TD SCH (08:19)
[2021-06-17] MEDS: Enoxaparin Sodium 80 MG/0.8 ML SYRINGE SC SCH ×2 (08:19→21:49)
[2021-06-17] MEDS: Famotidine/PF 20 mg/2ml Vial SLOW IVP SCH ×2 (08:19→21:51)
[2021-06-17] MEDS: levETIRAcetam in NS 500 MG in Premix Bag 1 BAG IVPB SCH ×2 (08:19→21:50)
[2021-06-17 17:06] LABS: Hemoglobin 9.8 g/dL (14.0-18.0); Mean Corpuscular Hemoglobin 30.5 pg (27.0-31.0); Mean Corpuscular Volume 89.8 fL (78.0-98.0); Mean Platelet Volume 9.3 fL (7.4-10.4); Platelet Count 397 thou/uL (130-400); RBC Distribution Width 14.1 % (11.5-14.5); White Blood Cell (WBC) Count 20.1 thou/uL (4.8-10.8)
[2021-06-17 17:18] LABS: Lymphocytes 17 % (21-51); MDiff Complete? YES; Monocytes 4 % (0-10); Neutrophil 79 % (42-75); Platelet Morphology Comment Appears Adequate; Polychromasia SLIGHT = 2-3 cells (100X) (0-2/hpf)
[2021-06-17 17:19] LABS: Anion Gap 17 mmol/L (10-20); BUN (Urea Nitrogen) 71 mg/dL (8.4-25.7); Calc. Creatinine Clearance 67 mL/min (70-130); Calcium 9.5 mg/dL (7.8-10.44); Carbon Dioxide 11 mmol/L (23-31); Chloride 111 mmol/L (98-107); Glucose 423 mg/dL (83-110); Potassium 4.1 mmol/L (3.5-5.1); Sodium 135 mmol/L (136-145)
[2021-06-17] MEDS ORDERED: Sodium Chloride 0.9% 1,000 ML IV SCH (17:30)
[2021-06-17] MEDS ORDERED: D5 1/4 NS 1,000 ML IV SCH (21:00)
[2021-06-17] MEDS: Cefepime 2 GM in Sodium Chloride 0.9% 100 ML IVPB SCH (21:10)
[2021-06-17] MEDS: VANCOMYCIN 2 GRAM/400 ML BAG 2 GM in Premix Bag 1 BAG IVPB SCH (23:24)
[2021-06-18] MEDS: HumaLOG 300 UNITS/3 ML VIAL SC PRN ×4 (00:19→17:39)
[2021-06-18] MEDS: Sodium Chloride 0.45% 1,000 ML IV SCH ×2 (03:54→14:18)
[2021-06-18 08:09] LABS: #Eosinphils 0.1 thou/uL (0.0-0.7); #Lymphocytes 2.8 thou/uL (1.20-3.40); #Monocytes 1.1 thou/uL (0.11-0.59); #Neutrophils 13.5 thou/uL (1.40-6.50); %Basophils 0.2 % (0.0-1.0); %Eosinophils 0.7 % (0.0-10.0); %Lymphocytes 15.9 % (21.0-51.0); %Monocytes 6.5 % (0.0-10.0); %Neutrophils 76.7 % (42.0-75.0); Hemoglobin 6.8 g/dL (14.0-18.0); Mean Corpuscular HGB CONC 32.6 g/dL (32.0-36.0); Mean Corpuscular Hemoglobin 29.3 pg (27.0-31.0); Mean Corpuscular Volume 89.7 fL (78.0-98.0); Mean Platelet Volume 9.7 fL (7.4-10.4); Platelet Count 360 thou/uL (130-400); RBC Distribution Width 14.2 % (11.5-14.5); Red Blood Cell (RBC) Count 2.31 mill/uL (4.70-6.10); White Blood Cell (WBC) Count 17.6 thou/uL (4.8-10.8)
[2021-06-18 08:23] LABS: ALT (SGPT) 38 U/L (8-55); AST (SGOT) 22 U/L (5-34); Albumin 2.9 g/dL (3.4-4.8); Alkaline Phosphatase 66 U/L (40-110); Anion Gap 15 mmol/L (10-20); BUN (Urea Nitrogen) 83 mg/dL (8.4-25.7); Bilirubin, Total 0.8 mg/dL (0.2-1.2); Calc. Creatinine Clearance 66 mL/min (70-130); Calcium 9.1 mg/dL (7.8-10.44); Carbon Dioxide 13 mmol/L (23-31); Chloride 112 mmol/L (98-107); Globulin 3.3 g/dL (2.4-3.5); Glucose 543 mg/dL (83-110); Potassium 3.8 mmol/L (3.5-5.1); Protein, Total 6.2 g/dL (5.8-8.1); Sodium 136 mmol/L (136-145)
[2021-06-18] MEDS: Enoxaparin Sodium 80 MG/0.8 ML SYRINGE SC SCH ×2 (09:53→21:32)
[2021-06-18] MEDS: levETIRAcetam in NS 500 MG in Premix Bag 1 BAG IVPB SCH ×2 (09:53→21:25)
[2021-06-18] MEDS: Cefepime 2 GM in Sodium Chloride 0.9% 100 ML IVPB SCH ×2 (09:53→20:46)
[2021-06-18] MEDS: Famotidine/PF 20 mg/2ml Vial SLOW IVP SCH ×2 (09:53→21:24)
[2021-06-18] MEDS: Nicotine 21 MG PATCH TD SCH (09:54)
[2021-06-18] MEDS: Aspirin 300 MG Suppository PR SCH (09:54)
[2021-06-18] MEDS: Amino Acids 4.25 %/Dextrose 5% 1,000 ML IV SCH (09:54)
[2021-06-18] MEDS: Lantus 1000 UNITS/10 ML VIAL SC SCH ×2 (09:55→21:23)
[2021-06-18] MEDS: VANCOMYCIN 2 GRAM/400 ML BAG 2 GM in Premix Bag 1 BAG IVPB SCH (21:23)
[2021-06-19] MEDS: Amino Acids 4.25 %/Dextrose 5% 1,000 ML IV SCH ×2 (01:05→16:01)
[2021-06-19] MEDS: Sodium Chloride 0.45% 1,000 ML IV SCH ×2 (01:06→22:01)
[2021-06-19] MEDS: HumaLOG 300 UNITS/3 ML VIAL SC PRN ×3 (01:49→16:01)
[2021-06-19] MEDS: Famotidine/PF 20 mg/2ml Vial SLOW IVP SCH ×2 (08:41→21:04)
[2021-06-19] MEDS: Aspirin 300 MG Suppository PR SCH (08:41)
[2021-06-19 09:15] LABS: Anisocytosis MODERATE=16-30 cells (100X) (0-5/hpf); Band 4 % (5-11); Hemoglobin 7.9 g/dL (14.0-18.0); Lymphocytes 32 % (21-51); MDiff Complete? YES; Mean Corpuscular HGB CONC 31.3 g/dL (32.0-36.0); Mean Corpuscular Hemoglobin 29.5 pg (27.0-31.0); Mean Corpuscular Volume 94.2 fL (78.0-98.0); Mean Platelet Volume 9.3 fL (7.4-10.4); Metamyelocyte 1 % (0-0); Neutrophil 63 % (42-75); Nucleated RBC 5 % (0); Platelet Count 297 thou/uL (130-400); Polychromasia SLIGHT = 2-3 cells (100X) (0-2/hpf); RBC Distribution Width 14.7 % (11.5-14.5); Red Blood Cell (RBC) Count 2.68 mill/uL (4.70-6.10)
[2021-06-19] MEDS: Nicotine 21 MG PATCH TD SCH (09:19)
[2021-06-19] MEDS: Lantus 1000 UNITS/10 ML VIAL SC SCH ×2 (09:19→21:09)
[2021-06-19] MEDS: Enoxaparin Sodium 80 MG/0.8 ML SYRINGE SC SCH ×2 (09:19→22:15)
[2021-06-19] MEDS: levETIRAcetam in NS 500 MG in Premix Bag 1 BAG IVPB SCH ×2 (09:22→21:58)
[2021-06-19] MEDS: Cefepime 2 GM in Sodium Chloride 0.9% 100 ML IVPB SCH ×2 (09:23→21:00)
[2021-06-19 09:43] LABS: BUN (Urea Nitrogen) 72 mg/dL (8.4-25.7); Calc. Creatinine Clearance 81 mL/min (70-130); Carbon Dioxide Less than 8 mmol/L (23-31); Chloride 118 mmol/L (98-107); Glucose 384 mg/dL (83-110); Magnesium 2.4 mg/dL (1.6-2.6); Phosphorus 3.1 mg/dL (2.3-4.7); Potassium 4.2 mmol/L (3.5-5.1); Sodium 139 mmol/L (136-145)
[2021-06-19] MEDS ORDERED: Dextrose 5% in Water 1,000 ML IV SCH (12:15)
[2021-06-19 12:21] LABS: SARS-CoV-2 PCR by NAA Not Detected (NotDetected)
[2021-06-19 22:02] LABS: Vancomycin, Trough 18.8 ug/mL
[2021-06-19] MEDS: VANCOMYCIN 2 GRAM/400 ML BAG 2 GM in Premix Bag 1 BAG IVPB SCH (22:30)
[2021-06-20] MEDS: Sodium Bicarbonate 150 MEQ in Dextrose 5% in Water 1,000 ML IV SCH ×2 (00:40→16:53)
[2021-06-20] MEDS: HumaLOG 300 UNITS/3 ML VIAL SC PRN ×4 (00:47→18:24)
[2021-06-20] MEDS: Amino Acids 4.25 %/Dextrose 5% 1,000 ML IV SCH ×3 (01:51→15:00)
[2021-06-20 06:47] LABS: Hemoglobin 6.4 g/dL (14.0-18.0); Mean Corpuscular Hemoglobin 30.3 pg (27.0-31.0); Mean Platelet Volume 9.2 fL (7.4-10.4); Platelet Count 316 thou/uL (130-400); RBC Distribution Width 14.9 % (11.5-14.5); White Blood Cell (WBC) Count 11.9 thou/uL (4.8-10.8)
[2021-06-20 06:52] LABS: ALT (SGPT) 35 U/L (8-55); AST (SGOT) 28 U/L (5-34); Albumin 2.8 g/dL (3.4-4.8); Alkaline Phosphatase 61 U/L (40-110); Anion Gap 13 mmol/L (10-20); BUN (Urea Nitrogen) 68 mg/dL (8.4-25.7); Bilirubin, Total 0.9 mg/dL (0.2-1.2); Calc. Creatinine Clearance 85 mL/min (70-130); Calcium 9.1 mg/dL (7.8-10.44); Carbon Dioxide 13 mmol/L (23-31); Chloride 120 mmol/L (98-107); Globulin 3.3 g/dL (2.4-3.5); Glucose 347 mg/dL (83-110); Magnesium 2.4 mg/dL (1.6-2.6); Phosphorus 2.5 mg/dL (2.3-4.7); Potassium 3.3 mmol/L (3.5-5.1); Protein, Total 6.1 g/dL (5.8-8.1); Sodium 143 mmol/L (136-145)
[2021-06-20] MEDS: Aspirin 300 MG Suppository PR SCH (08:12)
[2021-06-20] MEDS: Cefepime 2 GM in Sodium Chloride 0.9% 100 ML IVPB SCH ×2 (08:12→21:37)
[2021-06-20] MEDS: Famotidine/PF 20 mg/2ml Vial SLOW IVP SCH ×2 (08:12→21:37)
[2021-06-20] MEDS: Nicotine 21 MG PATCH TD SCH (08:12)
[2021-06-20] MEDS: levETIRAcetam in NS 500 MG in Premix Bag 1 BAG IVPB SCH ×2 (08:12→21:37)
[2021-06-20] MEDS: Lantus 1000 UNITS/10 ML VIAL SC SCH ×2 (08:13→21:38)
[2021-06-20 08:43] LABS: Band 9 % (5-11); Eosinophils 2 % (0-10); Hypochromia SLIGHT = 6-15 cells (100X) (0-5/hpf); Lymphocytes 19 % (21-51); MDiff Complete? YES; Metamyelocyte 2 % (0-0); Monocytes 7 % (0-10); Myelocyte 7 % (0-0); Neutrophil 53 % (42-75); Platelet Morphology Comment Appears Adequate; Polychromasia MODERATE = 3-4 cells (100X) (0-2/hpf)
[2021-06-20] MEDS: VANCOMYCIN 2 GRAM/400 ML BAG 2 GM in Premix Bag 1 BAG IVPB SCH (23:29)
[2021-06-21] MEDS: Amino Acids 4.25 %/Dextrose 5% 1,000 ML IV SCH (04:07)
[2021-06-21] MEDS: HumaLOG 300 UNITS/3 ML VIAL SC PRN (06:17)
[2021-06-21] MEDS: Sodium Bicarbonate 150 MEQ in Dextrose 5% in Water 1,000 ML IV SCH (08:38)
[2021-06-21] MEDS: levETIRAcetam in NS 500 MG in Premix Bag 1 BAG IVPB SCH (08:42)
[2021-06-21] MEDS: Famotidine/PF 20 mg/2ml Vial SLOW IVP SCH (08:42)
[2021-06-21] MEDS: Cefepime 2 GM in Sodium Chloride 0.9% 100 ML IVPB SCH (08:42)
[2021-06-21] MEDS: Nicotine 21 MG PATCH TD SCH (08:43)
[2021-06-21] MEDS: Lantus 1000 UNITS/10 ML VIAL SC SCH (08:45)
[2021-06-21 12:11] VITALS: BP 136/63; TEMP 98.5
== END 2021-06-21 13:33 | disposition hospice, inpatient (51) | DRG 64 ==
LOC: ERS 11:27 → EDBD 11:27 → NEURO 14:47 → IMCU/EMU 06-05 15:29 → NEURO 06-09 13:31
PROVIDERS: ADMIT Family Medicine; ATTEND Internal Medicine
PROC: 5A09357 Assistance with Respiratory Ventilation, Less than 24 Consecutive Hours, Continuous Positive Airway Pressure (ICD-10-PCS; principal; 2021-06-02)
PROC: 30233N1 Transfusion of Nonautologous Red Blood Cells into Peripheral Vein, Percutaneous Approach (ICD-10-PCS; 2021-06-20)
DX: I63.311 Cerebral infarction due to thrombosis of right middle cerebral artery (principal); Z51.5 Encounter for palliative care; Z66 Do not resuscitate; Z20.822 Contact with and (suspected) exposure to COVID-19; R29.724 NIHSS score 24; J96.01 Acute respiratory failure with hypoxia; J69.0 Pneumonitis due to inhalation of food and vomit; I26.99 Other pulmonary embolism without acute cor pulmonale; A41.9 Sepsis, unspecified organism; R65.20 Severe sepsis without septic shock; N17.9 Acute kidney failure, unspecified; M62.82 Rhabdomyolysis; G81.94 Hemiplegia, unspecified affecting left nondominant side; I13.0 Hypertensive heart and chronic kidney disease with heart failure and stage 1 through stage 4 chronic kidney disease, or unspecified chronic kidney disease; I50.32 Chronic diastolic (congestive) heart failure; F05 Delirium due to known physiological condition; G93.49 Other encephalopathy; Z68.42 Body mass index [BMI] 45.0-49.9, adult; R47.01 Aphasia; I65.21 Occlusion and stenosis of right carotid artery; J43.9 Emphysema, unspecified; E66.01 Morbid (severe) obesity due to excess calories; G47.33 Obstructive sleep apnea (adult) (pediatric); F17.210 Nicotine dependence, cigarettes, uncomplicated; F41.9 Anxiety disorder, unspecified; E86.0 Dehydration; R13.12 Dysphagia, oropharyngeal phase; N18.30 Chronic kidney disease, stage 3 unspecified; E11.22 Type 2 diabetes mellitus with diabetic chronic kidney disease; R29.810 Facial weakness; E11.65 Type 2 diabetes mellitus with hyperglycemia; Y95 Nosocomial condition; Z78.1 Physical restraint status; Z28.21 Immunization not carried out because of patient refusal; Z90.49 Acquired absence of other specified parts of digestive tract; Z98.49 Cataract extraction status, unspecified eye; Z99.89 Dependence on other enabling machines and devices; Z98.890 Other specified postprocedural states; Z79.899 Other long term (current) drug therapy; Z79.82 Long term (current) use of aspirin; Z79.84 Long term (current) use of oral hypoglycemic drugs; Z79.4 Long term (current) use of insulin; Z91.040 Latex allergy status; Z82.49 Family history of ischemic heart disease and other diseases of the circulatory system; Z83.3 Family history of diabetes mellitus; Z71.6 Tobacco abuse counseling
CPT/HCPCS: 0042T; 36415; 36416; 36430; 36600; 70450; 70496; 70498; 71045; 78451; 80048; 80053; 80061; 80202; 81003; 81015; 82140; 82550; 82805; 83036; 83605; 83735; 84100; 84484; 85025; 85610; 85730; 86850; 86900; 86901; 87040; 87070; 87081; 87205; 93005; 93306; 93970; 94640; 94660; 95712; 95819; 95957; 96374; A9540; J0360; J0692; J1650; J1815; J1885; J1953; J1956; J2060; J2185; J2270; J2920; J3370; J3490; J7030; J7050; J7070; J7620; P9016; S0028; U0002; U0003; U0005